=== PATIENT | female | born 1975 | race Caucasian/White ===

== ENCOUNTER → 2017-02-22 | Outpatient (CLI) | payer BC ==
--- NOTE | 2017-02-23 11:44 | ECHOF ---
Referral Reason:R00.2 Palpitations MEASUREMENTS -------- HEIGHT: 160.0 cm WEIGHT: 81.6 kg BP: 129/69 RVIDd: 2.7 cm (< 3.3) IVSd: 1.1 cm (0.6 - 1.1) LVIDd: 4.1 cm (3.9 - 5.3) LVPWd: 1.0 cm (0.6 - 1.1) IVSs: 1.4 cm LVIDs: 2.7 cm LVPWs: 1.3 cm LA Diam: 3.1 cm (2.7 - 3.8) LAESV Index (A-L): 23.53 ml/m Ao Diam: 3.0 cm (2.0 - 3.7) AV Cusp: 1.9 cm (1.5 - 2.6) MV EXCURSION: 17.007 mm (> 18.000) MV EF SLOPE: 106 mm/s (70 - 150) EPSS: 0.3 cm MV E Jc: 1.01 m/s MV DecT: 247 ms MV A Jc: 0.69 m/s MV E/A Ratio: 1.47 FINDINGS -------- Sinus rhythm. This was a technically good study. The left ventricular size is normal. Left ventricular wall thickness is normal. Overall left ventricular systolic function is normal with, an EF between 60 - 65 %. The right ventricle is normal in size and function. Normal LA size by volume 22+/-6 ml/m2. The right atrium is normal in size. The aortic valve is trileaflet and appears structurally normal. Normal appearing mitral valve. No mitral regurgitation. The tricuspid valve appears structurally normal. Trace/mild (physiologic) pulmonic regurgitation. The aortic root size is normal. Normal inferior vena cava with normal inspiratory collapse consistent with estimated right atrial pressure of 5 mmHg. There is no pericardial effusion. CONCLUSIONS -------- 1. Sinus rhythm. 2. Normal appearing mitral valve. 3. The tricuspid valve appears structurally normal. 4. Trace/mild (physiologic) pulmonic regurgitation. 5. The aortic root size is normal. 6. Normal inferior vena cava with normal inspiratory collapse consistent with estimated right atrial pressure of 5 mmHg. 7. There is no pericardial effusion. 8. This was a technically good study. 9. The left ventricular size is normal. 10. Left ventricular wall thickness is normal. 11. Overall left ventricular systolic function is normal with, an EF between 60 - 65 %. 12. The right ventricle is normal in size and function. 13. Normal LA size by volume 22+/-6 ml/m2. 14. The right atrium is normal in size. 15. The aortic valve is trileaflet and appears structurally normal. BEER BREWER: Emerita Back RDCS
== END | disposition home or self-care (01) ==
LOC: RADECHMAIN 11:19
PROVIDERS: ATTEND Family Medicine
DX: I37.1 Nonrheumatic pulmonary valve insufficiency (principal); R00.1 Bradycardia, unspecified; R00.0 Tachycardia, unspecified
CPT/HCPCS: 93225; 93226; 93306

== ENCOUNTER → 2019-05-15 | Outpatient (CLI) | payer BC ==
[2019-05-15 10:14] VITALS: BP 112/75; PULSE 59; RESP 16; TEMP 98.2; BMI 32.9
--- NOTE | 2019-05-15 11:03 | P.HPOB ---
History of Present Illness H&P Date: 05/15/19 Chief Complaint: The patient is here for her routine gynecologic exam and ma mmogram. This is a 43-year-old with an LMP of 2011. She is here to establish with this office. She is status post vaginal hysterectomy in 2011 for benign reasons. She is without gynecologic complaints. Her last pelvic exam was around 2011. Review of Systems She has gained 5 or 10 pounds over the past year. She denies respiratory or cardiac problems. G.I.: has bowel movements up to 2 or 3 times per day and are occasionally loose. She was once told she has irritable bowel syndrome. : she occasionally loses urine with running or walking. Past Medical History Past Medical History: Asthma, GERD/Reflux Additional Past Medical History / Comment(s): ENVIRONMENTAL ALLERGIES. 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 She had a vaginal hysterectomy for uterine fibroids. History of Any Multi-Drug Resistant Organisms: None Reported Past Surgical History: Cholecystectomy, Hysterectomy, Tonsillectomy Additional Past Surgical History / Comment(s): Vaginal hysterectomy 2011. Past Anesthesia/Blood Transfusion Reactions: No Reported Reaction Past Psychological History: No Psychological Hx Reported Smoking Status: Never smoker Past Alcohol Use History: Occasional (1-3 per week) Past Drug Use History: None Reported Additional History: She has been since 2013. 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 - Past Family History Mother Family Medical History: Hypertension Additional Family Medical History / Comment(s): Maternal grandmother and maternal aunt had congestive heart failure. Father Family Medical History: Cancer, Hypertension Additional Family Medical History / Comment(s): SKIN CANCER. Sister(s) Additional Family Medical History / Comment(s): Benign breast tumor. Medications and Allergies Home Medications Medication Instructions Recorded Confirmed Type Cholecalciferol (Vitamin D3) 2,000 unit PO 05/15/19 History [Vitamin D3] Allergies Allergy/AdvReac Type Severity Reaction Status Date / Time chocolate flavor Allergy Unknown Cough Verified 05/15/19 10:15 corn syrup Allergy Unknown Cough Verified 05/15/19 10:15 sulfamethoxazole AdvReac Unknown Unverified 05/15/19 10:15 [From Bactrim] trimethoprim [From Bactrim] AdvReac Unknown Unverified 05/15/19 10:15 Exam Vital Signs Temp Pulse Resp BP Pulse Ox 05/15/19 10:07 98.2 F 59 L 16 112/75 98 Intake and Output 05/14/19 05/15/19 05/15/19 22:59 06:59 14:59 Other: Weight 84.368 kg Height 5'3", weight 186 pounds, BMI 32.9. This is a well-developed well-nourished white female who is alert and oriented times 3 in no acute distress. HEENT: Within normal limits. NECK: Supple without mass or thyromegaly. CHEST AND LUNGS: Clear to auscultation. HEART: Regular rate and rhythm. BREASTS: Are without mass or discharge. AXILLARY EXAM: Negative for adenopathy. BACK: Negative for CVA tenderness. ABDOMEN: Soft, nontender, without palpable masses. PELVIC EXAM: External genitalia appears normal. Vagina appears normal. There is no evidence of prolapse. Bimanual examination is negative for mass or tenderness. There is a small amount of urethral mobility with cough and Valsa lva. No urinary leakage was demonstrated. RECTAL EXAM: Rectovaginal exam is negative for mass or tenderness and is negative for occult blood. EXTREMITIES: Nontender. IMPRESSION: 1. 43-year-old female with normal gynecologic exam who is status post vaginal hysterectomy for benign reasons. 2. Slight urinary incontinence with running and walking. Probable mixed incontinence. PLAN: 1. Pap smears have been discontinued. 2. Self breast awareness was discussed with the patient. 3. Screening mammogram will be done today. She states she did have one around 2005. 4. I recommended that she do [place] exercises and timed voids. She was also advised to urinate prior to running for exercise. 5. She was advised to return in one year for her annual well woman exam.
--- NOTE | 2019-05-15 13:16 | MM ---
Reason for exam: screening (asymptomatic). Baseline mammogram. Physical Findings: Dr. Caceres did breast exam. MG 3D Screening Mammo W/Cad Bilateral CC and MLO view(s) were taken. No prior studies available for comparison. Finding: There is a 10 mm equal density (isodense), oval mass in the lower inner quadrant, posterior position of the left breast. These results were verbally communicated with the patient and result sheet given to the patient on 05/15/19. ASSESSMENT: Incomplete: need additional imaging evaluation, BI-RAD 0 RECOMMENDATION: Ultrasound of the left breast.
--- NOTE | 2019-05-15 13:17 | USB ---
Reason for exam: additional evaluation requested from abnormal screening. Physical Findings: Breast exam preformed at baseline screening. US Breast Limited LT Left limited breast ultrasound including focal area of concern, retroareolar and axilla demonstrates a 0.9 x 1.0 x 0.5cm solid, hypoechoic lesion at 8 o'clock. These results were verbally communicated with the patient and result sheet given to the patient on 05/15/19. ASSESSMENT: Suspicious, BI-RAD 4 RECOMMENDATION: Ultrasound core biopsy of the left breast. Called Dr. Caceres with mammographic findings and has scheduled an appointment for the patient for 06/15/19 at 11:[address] Salazar. Biopsy scheduled for 06/18/19 at 12:20. PRELIMINARY REPORT CALLED AND FAXED TO DR. SALAZAR ON 05/15/19.
== END ==
LOC: WWCWWP 10:01
PROVIDERS: ATTEND Obstetrics & Gynecology
DX: Z12.31 Encounter for screening mammogram for malignant neoplasm of breast (principal); R92.8 Other abnormal and inconclusive findings on diagnostic imaging of breast
CPT/HCPCS: 77063; 77067

== ENCOUNTER → 2019-06-15 | Outpatient (CLI) | payer BC ==
[2019-06-15 11:48] VITALS: BP 129/80; PULSE 64; RESP 18; TEMP 98.6; BMI 30.9
--- NOTE | 2019-06-15 12:01 | P.GSHP ---
History of Present Illness H&P Date: 06/15/19 Chief Complaint: abnormal mammogram left breast Silvia is a 43 -year-old white female with the routine mammogram revealing a lesion in the left breast. An ultrasound was recommended which revealed a 0.9 cm solid lesion at 8:00. The patient does not feel anything of concern in her breast. She has no history of any prior left breast biopsies. She did have a history of left breast mastitis approximately 10 years ago. She has no complaints of any nipple discharge or pain in her breast. She had a hysterectomy for heavy bleeding and fibroids. She was 36. They did not take her ovaries. Family history: 1. sister with a desmoid tumor removed from her left breast 2. father: skin cancer not melanoma Hormonal history: Menarche:12 , breast fed: yes, age at first : 24 Hysterectomy at 36, they did not take her previous control pills:7 years hormones: none Surgical history: 1. Hysterectomy 2. Cholecystectomy 3. Tonsillectomy Medical history: none Social history: Smoke: Negative Alcohol: Social Drugs: Negative - Constitutional Constitutional: Reports sweats - EENT Eyes: denies blurred vision, denies pain Ears: deny: decreased hearing, tinnitus Ears, nose, mouth and throat: Denies headache, Denies sore throat - Breasts Breasts: bilateral: as per HPI - Cardiovascular Cardiovascular: Denies chest pain, Denies shortness of breath - Respiratory Comment: asthma - Gastrointestinal Comment: IBS - Genitourinary (Female) Genitourinary: Denies dysuria, Denies hematuria - Menstruation Menstruation: Reports post hysterectomy - Musculoskeletal Comment: scoliosis Musculoskeletal: Denies myalgias - Integumentary Integumentary: Denies pruritus, Denies rash - Neurological Neurological: Denies numbness, Denies weakness - Psychiatric Psychiatric: Denies anxiety, Denies depression - Endocrine Endocrine: Denies fatigue, Denies weight change - Hematologic/Lymphatic Comment: none - Allergic/Immunologic Allergic/Immunologic: Reports seasonal allergies Past Medical History Past Medical History: Asthma, GERD/Reflux Additional Past Medical History / Comment(s): ENVIRONMENTAL ALLERGIES. 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 She had a vaginal hysterectomy for uterine fibroids. History of Any Multi-Drug Resistant Organisms: None Reported Past Surgical History: Cholecystectomy, Hysterectomy, Tonsillectomy Additional Past Surgical History / Comment(s): Vaginal hysterectomy 2012. Past Anesthesia/Blood Transfusion Reactions: No Reported Reaction Past Psychological History: No Psychological Hx Reported Smoking Status: Never smoker Past Alcohol Use History: Occasional Past Drug Use History: None Reported - Past Family History Sister(s) Additional Family Medical History / Comment(s): Benign breast tumor. Mother Family Medical History: Hypertension Additional Family Medical History / Comment(s): Maternal grandmother and maternal aunt had congestive heart failure. Father Family Medical History: Cancer, Hypertension Additional Family Medical History / Comment(s): SKIN CANCER. Medications and Allergies Home Medications Medication Instructions Recorded Confirmed Type Cholecalciferol (Vitamin D3) 2,000 unit PO DAILY 05/15/19 06/04/19 History [Vitamin D3] Allergies Allergy/AdvReac Type Severity Reaction Status Date / Time chocolate flavor Allergy Unknown Cough Verified 05/15/19 10:15 corn syrup Allergy Unknown Cough Verified 05/15/19 10:15 sulfamethoxazole AdvReac Unknown Unverified 05/15/19 10:15 [From Bactrim] trimethoprim [From Bactrim] AdvReac Unknown Unverified 05/15/19 10:15 Surgical - Exam BMI 31 - General well developed, well nourished, no distress - Eyes normal ocular movement - ENT no hearing loss, no congestion - Neck no masses, trachea midline - Respiratory normal respiratory effort, clear to auscultation - Cardiovascular Rhythm: regular Heart Sounds: normal: S1, S2 - Abdomen Abdomen: soft, non tender, no guarding, no rigid, no rebound - Integumentary normal turgor - Neurologic no disoriented, no combative - Musculoskeletal normal gait, normal posture - Psychiatric oriented to time, oriented to person, oriented to place, speech is normal, memory intact Breast exam: Right breast: Multi-positional exam no dominant masses or nodules of concern, fibrocystic changes Right axilla: No adenopathy of concern Left breast: Multiple positional exam no dominant masses or nodules of concern, slight fullness in the upper inner aspect believed related to scoliosis and the breast being projected forward slightly Left axilla: No adenopathy of concern Results Mammogram and ultrasound results reviewed Assessment and Plan Assessment: Impression: 1. Abnormal left breast mammogram 2. Abnormal left breast ultrasound 3. Fibrocystic breast changes 4. Scoliosis 5. Family history of cancer 6. Irritable bowel syndrome Plan: 1. Left breast ultrasound-guided core biopsy 2. Follow-up after biopsy 3. Medical management of medical conditions Cc:
== END ==
LOC: WWCWWP 10:54
PROVIDERS: ATTEND Surgery
DX: Z53.9 Procedure and treatment not carried out, unspecified reason (principal)

== ENCOUNTER → 2019-06-18 | Day surgery (SDC) | payer BC ==
[2019-06-18 12:25] VITALS: RESP 18; BMI 30.9
[2019-06-18 13:44] VITALS: BP 112/67; PULSE 60; TEMP 98.6
--- NOTE | 2019-06-18 14:34 | USB ---
EXAMINATION TYPE: US biopsy breast VAD LT, MG diagnostic mammo LT wo CAD DATE OF EXAM: 06/18/2019 CLINICAL HISTORY: R92.8 ABN MAMMO. TECHNIQUE: Ultrasound guided core biopsy of left breast. COMPARISON: Left breast ultrasound dated 05/15/2019 FINDINGS: The procedure of ultrasound guided core biopsy was explained to the patient. Benefits, alternatives, and risks were discussed. An informed consent was then obtained. Preprocedural timeout was performed. The patient was placed in supine positioning for imaging and for the procedure. The overlying skin was prepped and draped in usual sterile fashion. 10 cc of 1% lidocaine without epinephrine was used as anesthetic into the skin and subcutaneous tissue up to a 0.9 x 1.0 x 0.5 cm appearing mass at the 8:00 position in the left breast. Under ultrasound guidance, a 12-gauge vacuum assisted biopsy gun device was used to obtain 4 core samples. After 3 samples the lesion collapsed confirming cystic nature. Following this, a ribbon-shaped biopsy marker was at the site of biopsy. The patient tolerated the procedure well without any immediate complication. The patient was kept in the radiology department for short stay after the procedure and then discharged home in stable condition. Postprocedure mammogram demonstrates appropriate biopsy marker placement. IMPRESSION: Successful, uncomplicated ultrasound guided core biopsy of a 0.9 x 1.0 x 2.5 cm mass at the 8:00 position in the left breast, full pathology results to follow. Of note the mass collapsed on the third biopsy confirming cystic nature of the mass. Pathology Results: Benign LEFT BREAST, 8:00, ULTRASOUND GUIDED CORE BIOPSY: Fibroadenoma. Recommendation Follow up ultrasound of the left breast in 6 months. SIXTO
== END | disposition home or self-care (01) ==
LOC: RADUSWWP 12:08
PROVIDERS: ATTEND Surgery
DX: D24.2 Benign neoplasm of left breast (principal)
CPT/HCPCS: 88305; 77065; 19083; A4648; J2001

== ENCOUNTER → 2019-06-21 | Outpatient (CLI) | payer BC ==
[2019-06-21 13:34] VITALS: BP 122/85; PULSE 64; RESP 16; TEMP 98.4; BMI 30.9
--- NOTE | 2019-06-21 13:38 | P.PN ---
Subjective Progress Note Date: 06/21/19 Silvia is a 43 -year-old white female with the routine mammogram revealing a lesion in the left breast. An ultrasound was recommended which revealed a 0.9 cm solid lesion at 8:00. The patient does not feel anything of concern in her breast. She has no history of any prior left breast biopsies. She did have a history of left breast mastitis approximately 10 years ago. She has no complaints of any nipple discharge or pain in her breast. She had a hysterectomy for heavy bleeding and fibroids. She was 36. They did not take her ovaries. She underwent an ultrasound-guided core biopsy on [id number]. Pathology reveals a fibroadenoma. The patient has no complaints related to the procedure postoperatively. Family history: 1. sister with a desmoid tumor removed from her left breast 2. father: skin cancer not melanoma Hormonal history: Menarche:12 , breast fed: yes, age at first : 24 Hysterectomy at 36, they did not take her previous control pills:7 years hormones: none Surgical history: 1. Hysterectomy 2. Cholecystectomy 3. Tonsillectomy Medical history: none Social history: Smoke: Negative Alcohol: Social Drugs: Negative - Constitutional Constitutional: Reports sweats - EENT Eyes: denies blurred vision, denies pain Ears: deny: decreased hearing, tinnitus Ears, nose, mouth and throat: Denies headache, Denies sore throat - Breasts Breasts: bilateral: as per HPI - Cardiovascular Cardiovascular: Denies chest pain, Denies shortness of breath - Respiratory Comment: asthma - Gastrointestinal Comment: IBS - Genitourinary (Female) Genitourinary: Denies dysuria, Denies hematuria - Menstruation Menstruation: Reports post hysterectomy - Musculoskeletal Comment: scoliosis Musculoskeletal: Denies myalgias - Integumentary Integumentary: Denies pruritus, Denies rash - Neurological Neurological: Denies numbness, Denies weakness - Psychiatric Psychiatric: Denies anxiety, Denies depression - Endocrine Endocrine: Denies fatigue, Denies weight change - Hematologic/Lymphatic Comment: none - Allergic/Immunologic Allergic/Immunologic: Reports seasonal allergies Objective - Vital Signs Vital signs: Vital Signs Temp 98.4 F 06/21/19 13:30 Pulse 64 06/21/19 13:30 Resp 16 06/21/19 13:30 BP 122/85 06/21/19 13:30 Pulse Ox 99 06/21/19 13:30 Intake & Output 06/20/19 06/21/19 06/21/19 18:59 06:59 18:59 Weight 79.379 kg - Exam Left breast: Biopsy site clean and dry no evidence of hematoma, no evidence of infection Assessment and Plan Assessment: Impression: 1. Fibroadenoma left breast 2. Family history of skin cancer and father 3. sister history of desmoid tumor in her breast 4. Fibrocystic breast changes 5. Mammographic abnormality left breast for which biopsy was performed Plan: 1. Left breast mammogram and ultrasound in 6 months 2. Patient to call if any questions or concerns sooner 3. Follow-up physician exam in 6 months CC: Dr. Mary
== END | disposition home or self-care (01) ==
LOC: WWCWWP 13:22
PROVIDERS: ATTEND Surgery
DX: Z53.9 Procedure and treatment not carried out, unspecified reason (principal)

== ENCOUNTER → 2019-11-27 | Outpatient (CLI) | payer BC ==
--- NOTE | 2019-11-27 15:10 | MM ---
Reason for exam: follow-up at short interval from prior study. Last mammogram was performed 5 months ago. History: Benign US biopsy breast VAD LT of the left breast, June 18, 2019. Physical Findings: Nurse did not find any significant physical abnormalities on exam. MG 3D Diag Mammo W/Cad LT CC and MLO view(s) were taken of the left breast. Prior study comparison: June 18, 2019, left breast MG diagnostic mammo LT wo CAD. May 15, 2019, bilateral MG 3d screening mammo w/cad. The breast tissue is heterogeneously dense. This may lower the sensitivity of mammography. There is a stable left lower inner quadrant mass with ribbon biopsy marker corresponding to the biopsy proven fibroadenoma. Left retroareolar architectural distortion resolves on additional spot compression views. These results were verbally communicated with the patient and result sheet given to the patient on 11/27/19. ASSESSMENT: Benign, BI-RAD 2 RECOMMENDATION: Return to routine screening mammogram schedule for both breasts. Back on schedule for May 2020.
== END | disposition home or self-care (01) ==
LOC: RADMAMWWP 13:44
PROVIDERS: ATTEND Surgery
DX: R92.8 Other abnormal and inconclusive findings on diagnostic imaging of breast (principal)
CPT/HCPCS: 77061; 77065

== ENCOUNTER → 2020-04-30 | Outpatient (CLI) | payer BC ==
--- NOTE | 2020-04-30 13:33 | US ---
EXAMINATION TYPE: US thyroid st tissue head/neck DATE OF EXAM: 04/30/2020 COMPARISON: Prior thyroid ultrasound February 17, 2015 CLINICAL HISTORY: E04.1 NONTOXIC SINGLE THYROID NODULE. GLAND SIZE: Right Lobe: 4.1 x 1.9 x 1.7 cm Overall Parenchyma: homogenous Left Lobe: 4.2 x 1.5 x 1.4 cm Overall Parenchyma: homogeneous Isthmus Thickness: 0.3 cm NODULES RIGHT: # of nodules measured on right: 1 1. 0.6 X 0.3 x 0.6 cm hypoechoic solid nodule at the mid pole with well-defined margins. This nodu le is wider than tall and shows intranodular vascularity. Prior size: 0.6 x 0.3 x 0.4 cm LEFT: # of nodules measured on left: 0 ISTHMUS: # of nodules measured in the isthmus: 0 Bilateral neck scanned, no evidence of lymphadenopathy. Homogeneous somewhat small size thyroid with stable subcentimeter spongiform nodule. IMPRESSION: As above. No new or enlarging greater than 1 cm nodules.
== END | disposition home or self-care (01) ==
LOC: RADUSWWP 12:12
PROVIDERS: ATTEND Family Medicine
DX: E04.1 Nontoxic single thyroid nodule (principal)
CPT/HCPCS: 76536

== ENCOUNTER → 2020-12-30 | Outpatient (CLI) | payer BC ==
[2020-12-30 09:43] VITALS: BP 115/68; PULSE 62; RESP 16; TEMP 98.3
--- NOTE | 2020-12-30 10:31 | P.HPOB ---
History of Present Illness H&P Date: 12/30/20 Chief Complaint: The patient is here for her routine gynecologic exam and ma mmogram. This is a 45-year-old with an LMP of 2011. The patient is status post vaginal hysterectomy in 2011 for benign reasons. The patient is without gynecologic complaints and denies any significant hot flashes. Review of Systems The patient has lost 11 pounds over the last year. She denies respiratory, cardiac, or G.I. problems. Past Medical History Past Medical History: Asthma, GERD/Reflux Additional Past Medical History / Comment(s): ENVIRONMENTAL ALLERGIES. Carpal tunnel syndrome. 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 She had a vaginal hysterectomy for uterine fibroids. History of Any Multi-Drug Resistant Organisms: None Reported Past Surgical History: Cholecystectomy, Hysterectomy, Tonsillectomy Additional Past Surgical History / Comment(s): Vaginal hysterectomy 2011. Past Anesthesia/Blood Transfusion Reactions: No Reported Reaction Past Psychological History: No Psychological Hx Reported Smoking Status: Never smoker Past Alcohol Use History: Occasional (1-2 per month) Additional Past Alcohol Use History / Comment(s): Never smoker Past Drug Use History: None Reported Additional History: She has been since 2013. 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 - Past Family History Sister(s) Additional Family Medical History / Comment(s): Benign breast tumor. Mother Family Medical History: Hypertension Additional Family Medical History / Comment(s): Maternal grandmother and maternal aunt had congestive heart failure. Father Family Medical History: Cancer, Hypertension Additional Family Medical History / Comment(s): SKIN CANCER. Medications and Allergies Home Medications Medication Instructions Recorded Confirmed Type Cholecalciferol (Vitamin D3) 2,000 unit PO DAILY 05/15/19 12/30/20 History [Vitamin D3] Hyoscyamine Sulfate [Levsin] 0.125 mg PO DAILY PRN 06/15/19 12/30/20 History Allergies Allergy/AdvReac Type Severity Reaction Status Date / Time chocolate flavor Allergy Unknown Cough Verified 12/30/20 09:40 corn syrup Allergy Unknown Cough Verified 12/30/20 09:40 sulfamethoxazole AdvReac Unknown Unverified 12/30/20 09:40 [From Bactrim] trimethoprim [From Bactrim] AdvReac Unknown Unverified 12/30/20 09:40 Exam Vital Signs Temp Pulse Resp BP Pulse Ox 12/30/20 09:40 98.3 F 62 16 115/68 98 Intake and Output 12/29/20 12/30/20 12/30/20 22:59 06:59 14:59 Other: Weight 79.379 kg Height 5 feet 3 inches, weight 175 pounds, BMI 31.0. This is a well-developed well-nourished white female who is alert and oriented times 3 in no acute distress. HEENT: Within normal limits. NECK: Supple without mass or thyromegaly. CHEST AND LUNGS: Clear to auscultation. HEART: Regular rate and rhythm. BREASTS: Are without mass or discharge. There is minimal bilateral breast tenderness. AXILLARY EXAM: Negative for adenopathy. BACK: Negative for CVA tenderness. ABDOMEN: Soft, nontender, without palpable masses. PELVIC EXAM: External genitalia appears normal. Vagina appears normal. There is no evidence of prolapse. Bimanual examination is negative for mass or tenderness. RECTAL EXAM: Rectal exam is negative for mass or tenderness and is negative for occult blood. EXTREMITIES: Nontender. IMPRESSION: 1. 45-year-old perimenopausal female status post vaginal hysterectomy for benign reasons with normal gynecologic exam. PLAN: 1. Pap smears have been discontinued. 2. Self breast awareness was discussed with the patient. 3. Osteoporosis prevention was discussed. I have stressed the importance of adequate calcium, vitamin D and regular exercise. Recommended amounts of calcium and vitamin D were also discussed. 4. Screening mammogram will be done today. 5. She was advised to return in one year for her annual well woman exam.
--- NOTE | 2020-12-31 09:59 | MM ---
Reason for exam: screening (asymptomatic). Last mammogram was performed 1 year and 1 month ago. History: Benign US biopsy breast VAD LT of the left breast, June 18, 2019. Physical Findings: A clinical breast exam by your physician is recommended on an annual basis and results should be correlated with mammographic findings. MG 3D Screening Mammo W/Cad Bilateral CC and MLO view(s) were taken. Prior study comparison: November 27, 2019, left breast MG 3d diag mammo w/cad LT. June 18, 2019, left breast MG diagnostic mammo LT wo CAD. The breast tissue is heterogeneously dense. This may lower the sensitivity of mammography. There is no discrete abnormality. No significant changes when compared with prior studies. ASSESSMENT: Negative, BI-RAD 1 RECOMMENDATION: Routine screening mammogram of both breasts in 1 year.
== END | disposition home or self-care (01) ==
LOC: WWCWWP 09:28
PROVIDERS: ATTEND Obstetrics & Gynecology
DX: Z12.31 Encounter for screening mammogram for malignant neoplasm of breast (principal)
CPT/HCPCS: 77063; 77067

== ENCOUNTER → 2022-02-02 | Outpatient (CLI) | payer BC ==
[2022-02-02 11:57] VITALS: BP 137/78; PULSE 56; RESP 17; TEMP 98.3
--- NOTE | 2022-02-02 12:38 | P.HPOB ---
History of Present Illness H&P Date: 02/02/22 Chief Complaint: The patient is here for her routine gynecologic exam and ma mmogram. This is a 46-year-old with an LMP of 2011. She is status post vaginal hysterectomy for benign reasons. She has been experiencing increased nipple sensitivity. She denies any nipple discharge. She does experience some monthly changes that are similar to when she was having menstrual periods. She is otherwise without gynecologic complaints. Review of Systems She is lost about 38 pounds intentionally over the past year. She has done this with dietary changes through a program called [employer]. She denies respiratory, cardiac, or GI problems. Past Medical History Past Medical History: Asthma, GERD/Reflux Additional Past Medical History / Comment(s): ENVIRONMENTAL ALLERGIES. Carpal tunnel syndrome. 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 She had a vaginal hysterectomy for uterine fibroids. History of Any Multi-Drug Resistant Organisms: None Reported Past Surgical History: Cholecystectomy, Hysterectomy, Tonsillectomy Additional Past Surgical History / Comment(s): Vaginal hysterectomy 2011. Colonoscopy with upper endoscopy in 2015. Past Anesthesia/Blood Transfusion Reactions: No Reported Reaction Past Psychological History: No Psychological Hx Reported Smoking Status: Never smoker Past Alcohol Use History: Occasional (1-3 per month) Additional Past Alcohol Use History / Comment(s): Never smoker Past Drug Use History: None Reported Additional History: She has been since 2013. 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 - Past Family History Sister(s) Additional Family Medical History / Comment(s): Benign breast tumor. Mother Family Medical History: Hypertension Additional Family Medical History / Comment(s): Maternal grandmother and maternal aunt had congestive heart failure. Father Family Medical History: Cancer, Hypertension Additional Family Medical History / Comment(s): SKIN CANCER. Medications and Allergies Home Medications Medication Instructions Recorded Confirmed Type Cholecalciferol (Vitamin D3) 2,000 unit PO DAILY 05/15/19 02/02/22 History [Vitamin D3] Hyoscyamine Sulfate [Levsin] 0.125 mg PO DAILY PRN 06/15/19 02/02/22 History Allergies Allergy/AdvReac Type Severity Reaction Status Date / Time chocolate flavor Allergy Unknown Cough Verified 02/02/22 11:51 corn syrup Allergy Unknown Cough Verified 02/02/22 11:51 sulfamethoxazole AdvReac Unknown Unverified 02/02/22 11:51 [From Bactrim] trimethoprim [From Bactrim] AdvReac Unknown Unverified 02/02/22 11:51 Exam Vital Signs Temp Pulse Resp BP Pulse Ox 02/02/22 11:53 98.3 F 56 L 17 137/78 100 Intake and Output 02/01/22 02/02/22 02/02/22 22:59 06:59 14:59 Other: Weight 62.142 kg Height 5 feet 3 inches, weight 137 pounds, BMI 24.3. This is a well-developed well-nourished white female who is alert and oriented times 3 in no acute distress. HEENT: Within normal limits. NECK: Supple without mass or thyromegaly. CHEST AND LUNGS: Clear to auscultation. HEART: Regular rate and rhythm. BREASTS: Are without mass or discharge. There is moderate fibrous tissue throughout both breasts consistent with her recent weight loss. No dominant mass. There is minimal breast tenderness. The nipples appear normal without discharge. AXILLARY EXAM: Negative for adenopathy. BACK: Negative for CVA tenderness. ABDOMEN: Soft, nontender, without palpable masses. PELVIC EXAM: External genitalia appears normal. Vagina appears normal. There is no evidence of prolapse. Bimanual examination is negative for mass or tenderness. RECTAL EXAM: Rectal exam is negative for mass or tenderness and is negative for occult blood. EXTREMITIES: Nontender. IMPRESSION: 1. 46-year-old pre-menoapusal female who is status post vaginal hysterectomy for benign reasons, with normal gynecologic exam. 2. Recent intentional weight loss with dietary changes. 3. Breast and nipple sensitivity with no significant physical findings. PLAN: 1. Pap smears have been discontinued. 2. Self breast awareness was discussed with the patient. We have also discussed symptoms associated with inflammatory breast cancer. 3. Screening mammogram was done today. 4. Her resting nipple sensitivity probably is related to her ovarian hormones. I believe she is still not postmenopausal. I recommended that she try decreasing caffeine intake. She states she typically only drinks 1 or 2 cups of coffee per day. The nipple sensitivity may or may not be related to her weight loss. 5. Osteoporosis prevention was discussed. I have stressed the importance of ad equate calcium, vitamin D and regular exercise. Recommended amounts of calcium and vitamin D were also discussed. 6. She was advised to return in one year for her annual well woman exam.
--- NOTE | 2022-02-04 14:22 | MM ---
Reason for exam: screening (asymptomatic). Last mammogram was performed 1 year and 1 month ago. History: Benign US biopsy breast VAD LT of the left breast, June 18, 2019. Physical Findings: A clinical breast exam by your physician is recommended on an annual basis and results should be correlated with mammographic findings. MG 3D Screening Mammo W/Cad Bilateral CC and MLO view(s) were taken. Prior study comparison: December 30, 2020, bilateral MG 3d screening mammo w/cad. November 27, 2019, left breast MG 3d diag mammo w/cad LT. The breast tissue is extremely dense which could obscure a lesion on mammography. No significant changes when compared with prior studies. ASSESSMENT: Benign, BI-RAD 2 RECOMMENDATION: Routine screening mammogram of both breasts in 1 year.
== END | disposition home or self-care (01) ==
LOC: WWCWWP 11:21
PROVIDERS: ATTEND Obstetrics & Gynecology
DX: Z12.31 Encounter for screening mammogram for malignant neoplasm of breast (principal)
CPT/HCPCS: 77063; 77067

== ENCOUNTER → 2023-06-14 | Outpatient (CLI) | payer BC ==
[2023-06-14 13:06] VITALS: BP 118/76; PULSE 60; RESP 17; TEMP 98.3
--- NOTE | 2023-06-14 13:26 | P.HPOB ---
History of Present Illness H&P Date: 06/14/23 Chief Complaint: The patient is here for her routine gynecologic exam and ma mmogram. This is a 47-year-old with an LMP of 2011. She is status post vaginal hysterectomy for benign reasons. She is without gynecologic complaints and denies significant hot flashes. Review of Systems The patient has gained 13 pounds over the last year. This was after losing 35 pounds the previous year. She has been exercising regularly. She denies respir atory, cardiac, or G.I. problems. Past Medical History Past Medical History: Asthma, GERD/Reflux Additional Past Medical History / Comment(s): ENVIRONMENTAL ALLERGIES. Carpal tunnel syndrome. 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 She had a vaginal hysterectomy for uterine fibroids. History of Any Multi-Drug Resistant Organisms: None Reported Past Surgical History: Breast Surgery, Cholecystectomy, Hysterectomy, Tonsillectomy Additional Past Surgical History / Comment(s): Vaginal hysterectomy 2011. Colonoscopy with upper endoscopy in 2015. Bilateral silicone breast implants and mini abdominoplasty 2021. Past Anesthesia/Blood Transfusion Reactions: No Reported Reaction Past Psychological History: No Psychological Hx Reported Smoking Status: Never smoker Past Alcohol Use History: Occasional (5 per month.) Additional Past Alcohol Use History / Comment(s): Never smoker Past Drug Use History: None Reported Additional History: She has been since 2013. 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 - Past Family History Sister(s) Additional Family Medical History / Comment(s): Benign breast tumor. Mother Family Medical History: Hypertension Additional Family Medical History / Comment(s): Maternal grandmother and maternal aunt had congestive heart failure. Father Family Medical History: Cancer, Hypertension Additional Family Medical History / Comment(s): SKIN CANCER. Medications and Allergies Home Medications Medication Instructions Recorded Confirmed Type Cholecalciferol (Vitamin D3) 2,000 unit PO DAILY 05/15/19 06/14/23 History [Vitamin D3] Magnesium 200 mg PO DAILY 06/14/23 06/14/23 History Montelukast [Singulair] 10 mg PO DAILY 06/14/23 06/14/23 History Allergies Allergy/AdvReac Type Severity Reaction Status Date / Time chocolate flavor Allergy Unknown Cough Verified 06/14/23 12:55 corn syrup Allergy Unknown Cough Verified 06/14/23 12:55 sulfamethoxazole AdvReac Unknown Unverified 06/14/23 12:55 [From Bactrim] trimethoprim [From Bactrim] AdvReac Unknown Unverified 06/14/23 12:55 Exam Vital Signs Temp Pulse Resp BP Pulse Ox 06/14/23 13:04 98.3 F 60 17 118/76 98 Intake and Output 06/13/23 06/14/23 06/14/23 22:59 06:59 14:59 Other: Weight 68.039 kg Height 5 feet 3 inches, weight 150 pounds, BMI 26.6. This is a well-developed well-nourished white female who is alert and oriented times 3 in no acute distress. HEENT: Within normal limits. NECK: Supple without mass or thyromegaly. CHEST AND LUNGS: Clear to auscultation. HEART: Regular rate and rhythm. BREASTS: Are without mass or discharge. Breasts are consistent with bilateral implants. AXILLARY EXAM: Negative for adenopathy. BACK: Negative for CVA tenderness. ABDOMEN: Soft, nontender, without palpable masses. PELVIC EXAM: External genitalia appears normal. Vagina appears normal. There is no evidence of prolapse. Bimanual examination is negative for mass or tenderness . RECTAL EXAM: negative for mass or tenderness and is negative for occult blood. EXTREMITIES: Nontender. IMPRESSION: 1. 47-year-old female status post vaginal hysterectomy with normal gynecologic exam. 2. Bilateral breast implants. PLAN: 1. Pap smears have been discontinued. 2. Self breast awareness was discussed with the patient. We have also discussed symptoms associated with inflammatory breast cancer. 3. Screening mammogram will be done today. 4. Osteoporosis prevention was discussed. I have stressed the importance of adequate calcium, vitamin D and regular exercise. Recommended amounts of calcium and vitamin D were also discussed. 5. She was advised to return in one year for her annual well woman exam.
--- NOTE | 2023-06-15 07:33 | MM ---
Reason for Exam: Screening (asymptomatic). Last mammogram was performed 1 year(s) and 5 month(s) ago. Patient History: Menarche at age 12. First Full-Term at age 24. Hysterectomy at age 36. 09/14/2022, Bilateral Reduction. 06/18/2019, Benign Core Biopsy on the left side. 09/14/2022, Bilateral Implants. Risk Values: Enid 5 year model risk: 1.2%. NCI Lifetime model risk: 11.1%. Prior Study Comparison: 11/27/2019 Left Diagnostic Mammogram, [facility]. 12/30/2020 Bilateral Screening Mammogram, [facility]. 02/02/2022 Bilateral Screening Mammogram, [facility]. Tissue Density: The breast tissue is extremely dense which could obscure a lesion on mammography. Findings: Analyzed By CAD. There is no suspicious group of microcalcifications or new suspicious mass in either breast. Bilateral breast implants appear intact. Biopsy clip within the left breast. Overall Assessment: Benign, BI-RAD 2 Management: Screening Mammogram of both breasts in 1 year. A clinical breast exam by your physician is recommended on an annual basis and results should be correlated with mammographic findings. Note on Enid scores and lifetime risk: 1. A Enid score greater than 3% is considered moderate risk. If this is the case, consider specialist referral to assess eligibility for a risk reducing agent. If overall lifetime risk for the development of breast cancer is 20% or higher, the patient may qualify for future screening with alternating mammogram and breast MRI. Electronically signed and approved by: Abdullahi Vazquez D.O.
== END ==
LOC: WWCWWP 12:40
PROVIDERS: ATTEND Obstetrics & Gynecology
DX: Z01.419 Encounter for gynecological examination (general) (routine) without abnormal findings (principal); J45.909 Unspecified asthma, uncomplicated; K21.9 Gastro-esophageal reflux disease without esophagitis; Z80.3 Family history of malignant neoplasm of breast; Z98.890 Other specified postprocedural states; Z98.82 Breast implant status; Z88.1 Allergy status to other antibiotic agents; Z88.2 Allergy status to sulfonamides; Z91.018 Allergy to other foods
CPT/HCPCS: 77063; 77067

== ENCOUNTER → 2024-02-16 | Outpatient (CLI) | payer BC ==
--- NOTE | 2024-02-17 06:13 | CT ---
EXAMINATION TYPE: CT sinus wo con DATE OF EXAM: 02/16/2024 COMPARISON: None HISTORY: sinusitis CT DLP: 416.3 mGycm. Automated Exposure Control for Dose Reduction was Utilized. TECHNIQUE: CT scan of the sinuses is performed without contrast, axial images are obtained, coronal r eformatted images are also reviewed. FINDINGS: The nasal septum curves minimally to the left. There are no osteophytic spurs. No nasal polyps and no ty bullosa. The right frontal sinus is clear; the right frontal recess is patent. The left frontal sinus is clear ; the left frontal recess are clear. The right maxillary sinus is clear; the infundibulum is patent. The right anterior and middle ethmoid sinus air cells are clear, and the right hiatus semilunaris is patent. The left maxillary sinus is clear and the infundibulum is patent The left anterior and middle ethmoid sinus air cells are clear, and the left hiatus semilunaris is patent. The sphenoid sinus and posterior ethmoid sinus air cells are clear, and the sphenoethmoidal recesses are patent bilaterally. The visualized mastoid sinus air cells and middle ear cavities are bilaterally clear. The osseous structures are negative. The visualized intracranial contents and extracranial soft tissues are unremarkable. IMPRESSION: Negative examination.
== END | disposition home or self-care (01) ==
LOC: RADCTMAIN 17:34
PROVIDERS: ATTEND Otolaryngology
DX: J32.0 Chronic maxillary sinusitis (principal); L02.416 Cutaneous abscess of left lower limb
CPT/HCPCS: 70486

== ENCOUNTER → 2024-05-14 | Outpatient (CLI) | payer BC ==
--- NOTE | 2024-05-14 15:29 | US ---
EXAMINATION TYPE: US thyroid st tissue head/neck DATE OF EXAM: 05/14/2024 COMPARISON: 04/30/20 CLINICAL INDICATION: Female, 48 years old with history of E04.1 NONTOXIC SINGLE THYROID NODULE; hx of thyroid nodule. Not on blood thinners GLAND SIZE: Right Lobe: 3.9 x 1.4 x 1.5 cm Overall Parenchyma: homogeneous Left Lobe: 3.7 x 1.5 x 1.5 cm Overall Parenchyma: homogeneous Isthmus Thickness: 0.3 cm NODULES RIGHT: # of nodules measured on right: 1 1. 0.7 X 0.6 x 0.4 cm, mid mid, Prior size: 0.6 x 0.6x 0.3 cm TIRADS Score: 3 TIRADS Category 3: Composition: Mixed cystic and solid (1 point). Echogenicity: Hypoechoic (2 points). Shape: Wider than tall (0 points). Margin: Smooth (0 points). Echogenic foci: None or large comet-tail artifacts (0 points) Recommendation: If >2.5cm: FNA; If >1.5cm: Follow up at 1,3,5 years LEFT: # of nodules measured on left: 0 ISTHMUS: # of nodules measured in the isthmus: 0 Bilateral neck scanned, no evidence of lymphadenopathy. IMPRESSION: Right thyroid nodule that meet criteria for follow-up.
== END | disposition home or self-care (01) ==
LOC: RADUSWWP 14:44
PROVIDERS: ATTEND Family Medicine
DX: E04.1 Nontoxic single thyroid nodule (principal)
CPT/HCPCS: 76536

== ENCOUNTER → 2024-07-03 | Outpatient (CLI) | payer BC ==
--- NOTE | 2024-07-06 15:56 | WWHP ---
This is from her 07/03/24 visit. [facility] - HISTORY AND PHYSICAL CHIEF COMPLAINT: The patient is here for her routine gynecologic exam and mammogram. HPI: This is a 48-year-old female who is status post vaginal hysterectomy for benign reasons. The patient denies significant hot flashes and states she feels more cold than hot. She has noticed some vaginal dryness and a lower sex drive. She is otherwise without gynecologic complaints. PAST MEDICAL HISTORY: Seasonal allergies and allergy induced asthma. Also refer to her previous gynecologic H and P from 2022. MEDICATIONS: Include: 1. Daisha. 2. Singulair. 3. Astelin nasal spray. 4. Vitamin D. 5. A magnesium supplement. PAST SURGICAL HISTORY: Revision of abdominoplasty and liposuction. Also refer to her previous 2022 gynecologic H and P. SOCIAL HISTORY: She denies tobacco and drug use and admits to about 3 alcohol-containing drinks per month. 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 FAMILY HISTORY: Sister has atrial fibrillation. Also refer to her 2022 history and physical. REVIEW OF SYSTEMS: She has gained about 5 pounds over the past year. She denies respiratory, cardiac or GI problems. PHYSICAL EXAMINATION: VITAL SIGNS: Blood pressure 106/77, height 5 feet 3 inches, weight 148 pounds, BMI 26, temperature 98.1, pulse 62, pulse oximeter 98%. GENERAL: This is a well-developed, well-nourished, white female, who is alert and oriented x3, in no acute distress. HEENT: Within normal limits. NECK: Supple without mass or thyromegaly. CHEST AND LUNGS: Clear to auscultation. HEART: Regular rate and rhythm. BREASTS: Consistent with bilateral breast implants. The breasts are without mass or discharge. Axillary exam is negative for adenopathy. ABDOMEN: Soft, nontender, without palpable masses. PELVIC: Normal external genitalia without significant atrophy. Vagina appears normal without significant atrophy. There is no evidence of prolapse. Bimanual examination is negative for mass or tenderness. Rectovaginal exam is negative for mass or tenderness and is Hemoccult negative. EXTREMITIES: Nontender. IMPRESSION: A 48-year-old perimenopausal female status post vaginal hysterectomy for benign reasons, with normal gynecologic exam. PLAN: 1. Pap smears have been discontinued. 2. Self-breast examination was discussed. We have reviewed the signs and symptoms of inflammatory breast cancer. 3. Screening mammogram will be done today. 4. Osteoporosis prevention was discussed. 5. Colorectal cancer screening was discussed. She has had a colonoscopy in approximately 2016. She will discuss further colorectal cancer screening with her PCP. 6. She will return in 1 year for her annual well-woman examination. MMODL / IJN: [id number] / SIXTO
--- NOTE | 2024-07-23 09:57 | MM ---
Reason for Exam: Screening (asymptomatic). Last screening mammogram was performed 12 month(s) ago. Patient History: Menarche at age 12. First Full-Term at age 24. Hysterectomy at age 36. 09/14/2022, Bilateral Reduction. 06/18/2019, Benign Core Biopsy on the left side. 09/14/2022, Bilateral Implants. Risk Values: En[place] 5 year model risk: 1.2%. NCI Lifetime model risk: 10.9%. Prior Study Comparison: 12/30/2020 Bilateral Screening Mammogram, [facility]. 02/02/2022 Bilateral Screening Mammogram, [facility]. 06/14/2023 Bilateral MG 3D screen mammo imp/cad., [facility]. Tissue Density: The breasts are extremely dense, which lowers the sensitivity of mammography. Findings: Analyzed By CAD. There is no suspicious group of microcalcifications or new suspicious mass in either breast. Bilateral breast implants are intact. Overall Assessment: Benign, BI-RAD 2 Management: Screening Mammogram of both breasts in 1 year. . Patient should continue monthly self-breast exams. A clinical breast exam by your physician is recommended on an annual basis. This exam should not preclude additional follow-up of suspicious palpable abnormalities. Note on Enid scores and lifetime risk: 1. A Enid score greater than 3% is considered moderate risk. If this is the case, consider specialist referral to assess eligibility for a risk reducing agent. 2. If overall lifetime risk for the development of breast cancer is 20% or higher, the patient may qualify for future screening with alternating mammogram and breast MRI. Electronically signed and approved by: Farrukh Cook M.D. Radiologis
== END | disposition home or self-care (01) ==
LOC: RADMAMWWP 15:43
PROVIDERS: ATTEND Obstetrics & Gynecology
DX: Z12.31 Encounter for screening mammogram for malignant neoplasm of breast (principal); Z01.419 Encounter for gynecological examination (general) (routine) without abnormal findings; R92.30 Dense breasts, unspecified; Z90.710 Acquired absence of both cervix and uterus
CPT/HCPCS: 77063; 77067

== ENCOUNTER → 2024-10-03 | Outpatient (CLI) | payer BC ==
[2024-10-03 12:45] VITALS: BP 129/88; PULSE 65; RESP 16; TEMP 98.5
--- NOTE | 2024-10-03 13:24 | USB ---
Reason for Exam: Clinical finding. Patient History: Menarche at age 12. First Full-Term at age 24. Hysterectomy at age 36. 09/14/2022, Bilateral Reduction. 06/18/2019, Benign Core Biopsy on the left side. 09/14/2022, Bilateral Implants. Risk Values: En[place] 5 year model risk: 1.2%. NCI Lifetime model risk: 10.9%. Technique: Method: Targeted. Prior Study Comparison: 02/02/2022 Bilateral Screening Mammogram, [facility]. 06/14/2023 Bilateral MG 3D screen mammo imp/cad., [facility]. 07/03/2024 Bilateral MG 3D screen mammo imp/cad., [facility]. Findings: The area of palpable concern of the left breast, the axilla of the left breast and the retroareolar of the left breast were scanned. Solid indeterminate mass at the site of clinical concern which corresponds to the left breast 2:00 position 10 cm from the nipple. Tissue diagnosis is recommended. No additional masses present within the [id number].. Overall Assessment: Suspicious, BI-RAD 4 Management: Ultrasound Core Biopsy of the left breast. A clinical breast exam by your physician is recommended on an annual basis and results should be correlated with mammographic findings. This exam should not preclude additional follow-up of suspicious palpable abnormalities. Results were given to the patient verbally at the time of exam. [facility], , 10/03/2024 1:21 PM. Electronically signed and approved by: Farrukh Cook M.D. Radiologis
--- NOTE | 2024-10-03 13:27 | P.PN ---
Progress Note - Text Progress Note Date: 10/03/24 Chief Complaint: Left lateral breast pain and possible lump for 1 month. HPI: This is a 48-year-old female who states she has noticed a left breast soreness during the past month. She believes this started when she was training for half marathon race. She notices this where the left breast meets the chest wall and axillary region. She thinks she also feels a small lump that feels like the tip of her finger. The small lump feels sore to the touch. She denies any nipple discharge. She is also wondering if she is menopausal. She is status post vaginal hysterectomy for benign reasons and has not had significant hot flashes, but has noticed a significant decrease in her sex drive. The breast soreness does not seem to be cyclic in nature. After her half marathon race, she has stopped running, but still notices the soreness. ROS: Unremarkable. PE: Blood pressure: 129/88, Height: 5 feet 3 inches, Weight: 150 pounds, Temperature: 98.5, Pulse: 65. Pulse oximeter 100%. This is a well developed, well nourished, white female who is alert and orientedx3, in no acute distress. Breasts are consistent with bilateral implants. There is no unusual dimpling or puckering of the breasts. The nipples appear normal without discharge. The area of soreness is at the lateral border of the left breast where it meets the rib cage. The ribs are palpable just posterior and lateral to the sore area. She points out an area that feels like a 1 x 1.5 cm tissue mass that is above the ribs in the lateral breast tissue. This is mildly tender. Screening mammogram on 07/03/2024 was benign. Impression: 1. 48-year-old female status post vaginal hysterectomy for benign reasons, with uncertain menopausal status. 2. Left breast soreness and small lump. Differential diagnosis will include pulled intercostal muscle, tendinitis involving a muscle near the rib cage, breast cyst, tender suspending the ligaments of the breast, and less likely, breast neoplasm. Plan: 1. Left breast ultrasound targeting the left lateral area of the breast where she is experiencing the soreness and where the small tissue lump is noted. If suspicious findings, consider tissue biopsy. If benign appearing, I have recommended that she use a fairly tight supportive bra, especially with running. I have also asked her to try to not push on the area for 1 month since constantly feeling and examining the area may keep it sore. She can also use ibuprofen as directed for soreness. 2. We will plan on doing FSH and estradiol blood testing to determine the menopausal status. If this show she is still premenopausal, cyclic breast soreness would also be part of the differential diagnosis. Time spent with the patient: 20 minutes
[2024-10-03 18:38] LABS: Estradiol 61.7 pg/mL
[2024-10-03 19:20] LABS: Follicle Stimulating Hormone 6.2 mIU/mL
== END ==
LOC: WWCWWP 11:53
PROVIDERS: ATTEND Obstetrics & Gynecology
DX: R92.8 Other abnormal and inconclusive findings on diagnostic imaging of breast (principal); N63.20 Unspecified lump in the left breast, unspecified quadrant; N95.1 Menopausal and female climacteric states; N91.2 Amenorrhea, unspecified; N64.4 Mastodynia; Z90.710 Acquired absence of both cervix and uterus; Z88.2 Allergy status to sulfonamides; Z88.1 Allergy status to other antibiotic agents; Z91.018 Allergy to other foods
CPT/HCPCS: 82670; 83001

== ENCOUNTER → 2024-10-03 | Outpatient (CLI) | payer BC ==
--- NOTE | 2024-10-09 17:20 | P.PN ---
Progress Note - Text Progress Note Date: 10/09/24 OUTPATIENT FOLLOW-UP NOTE TEST(S)/RESULTS: Test results from 10/03/2024 showed FSH of 6.2 and estradiol of 61.7. This is consistent with premenopausal state. Left breast ultrasound was suspicious. METHOD OF NOTIFICATION: Patient was notified by phone on 10/09/2024. PATIENT COMMENTS: The patient was aware of the suspicious left breast ultrasound and is scheduled for a biopsy on 10/19/2024. She will be seeing Dr. Ravi Snyder for follow-up DIAGNOSIS: Blood tests consistent with premenopausal state. Suspicious left breast ultrasound corresponding to the palpable lump in her breast. DISCUSSION: PLAN: Left breast biopsy as above.
== END | disposition home or self-care (01) ==
LOC: RADUSWWP 13:00
PROVIDERS: ATTEND Obstetrics & Gynecology
DX: Z53.9 Procedure and treatment not carried out, unspecified reason (principal)

== ENCOUNTER → 2024-10-19 | Day surgery (SDC) | payer BC ==
--- NOTE | 2024-10-31 08:45 | MM ---
Reason for Exam: Post Procedure Mammogram. Last screening mammogram was performed 4 month(s) ago. Patient History: Menarche at age 12. First Full-Term at age 24. Hysterectomy at age 36. 09/14/2022, Bilateral Reduction. 06/18/2019, Benign Core Biopsy on the left side. 09/14/2022, Bilateral Implants. Risk Values: [place] 5 year model risk: 1.2%. NCI Lifetime model risk: 10.9%. Prior Study Comparison: 02/02/2022 Bilateral Screening Mammogram, [facility]. 06/14/2023 Bilateral MG 3D screen mammo imp/cad., [facility]. 07/03/2024 Bilateral MG 3D screen mammo imp/cad., [facility]. Tissue Density: Left: The breasts are extremely dense, which lowers the sensitivity of mammography. Pathology Description: Location: 2 o'clock. Marker Left Behind. Needle Type: Mammotome Cores: 7 The procedure of ultrasound guided core biopsy was explained to the patient. Benefits, alternatives, and risks were discussed. An informed consent was then obtained. The patient was placed in supine positioning for imaging and for the procedure. The overlying skin was prepped and draped in usual sterile fashion. Lidocaine buffered with bicarbonate was used as anesthetic into the skin and subcutaneous tissue up to area of concern in the 2:00 left breast. Under ultrasound guidance, a 13-gauge vacuum-assisted mammotome Elite biopsy gun was used to obtain 7 core samples. Following this, a HydroMark butterfly clip was left in lesion. The patient tolerated the procedure well without any immediate complication. The patient was kept in the radiology department for short stay after the procedure and then discharged home in stable condition. Postprocedure mammogram: The patient was transferred to mammography for physician ordered post procedure mammogram for clip placement verification. Post procedure mammogram demonstrates appropriate placement of clip. IMPRESSION: Successful, uncomplicated ultrasound guided core biopsy of area of concern in the 2:00 left breast, full pathology results to follow. Possible fibroadenoma. [facility], , 10/19/2024 3:48 PM. Pathology Results: Result: Benign, Fibrocystic change. Pathology and radiology were reviewed. Findings are concordant. LEFT BREAST, 2:00, ULTRASOUND GUIDED NEEDLE CORE BIOPSY: Benign breast with fibrocystic changes including microcalcifications. Overall Assessment: Benign Assessment: MG diagnostic mammo LT wo CAD. - Left: Benign, BI-RAD 2. Management: Diagnostic Breast Ultrasound of the left breast in 6 months. Electronically signed and approved by: Praveen Marcelino M.D. Radiologist
== END ==
LOC: RADUSWWP 10:12
PROVIDERS: ATTEND Surgery
DX: N60.12 Diffuse cystic mastopathy of left breast (principal)
CPT/HCPCS: 88305; 77065; 19083; A4648

== ENCOUNTER → 2024-11-02 | Outpatient (CLI) | payer BC ==
[2024-11-02 13:45] VITALS: BP 116/78; PULSE 74; RESP 18; TEMP 97.7
--- NOTE | 2024-11-02 14:05 | P.PN ---
Subjective Progress Note Date: 11/02/24 Silvia is a 49 -year-old white female seen in consutation for Dr. Caceres who had a bilateral mammogram on 07-03-24 which was BIRAD 2. She had an ultrasound of the left breast on 10-03-24 which led to a left breast core biopsy. The pathology was benign concordant. She felt a lump in her breast in August and that led to the ultrasound. She can still fell the area. She has had bilateral breast lifts/reduction and bilateral implants. This was done in September 2022. The lump she is feeling now is in the lateral breast. It is tender. She does not have periods as she had a hysterectomy but her ovaries were not taken. No other lumps masses or nodules. Family history: 1. sister with a desmoid tumor removed from her left breast 2. father: skin cancer not melanoma Hormonal history: Menarche:12 , breast fed: yes, age at first : 24 Hysterectomy at 36, they did not take her previous control pills:7 years hormones: none Surgical history: 1. Hysterectomy 2. Cholecystectomy 3. Tonsillectomy 4. Bilateral breast reduction with implant placement 5. [facility] Medical history: none Social history: Smoke: Negative Alcohol: Social Drugs: Negative - Constitutional Constitutional: Reports sweats - EENT Eyes: denies blurred vision, denies pain Ears: deny: decreased hearing, tinnitus Ears, nose, mouth and throat: Denies headache, Denies sore throat - Breasts Breasts: bilateral: as per HPI - Cardiovascular Cardiovascular: Denies chest pain, Denies shortness of breath - Respiratory Comment: asthma - Gastrointestinal Comment: IBS - Genitourinary (Female) Genitourinary: Denies dysuria, Denies hematuria - Menstruation Menstruation: Reports post hysterectomy - Musculoskeletal Comment: scoliosis Musculoskeletal: Denies myalgias - Integumentary Integumentary: Denies pruritus, Denies rash - Neurological Neurological: Denies numbness, Denies weakness - Psychiatric Psychiatric: Denies anxiety, Denies depression - Endocrine Endocrine: Denies fatigue, Denies weight change - Hematologic/Lymphatic Comment: none - Allergic/Immunologic Allergic/Immunologic: Reports seasonal allergies Objective - Vital Signs Vital signs: Vital Signs Temp 97.7 F 11/02/24 13:43 Pulse 74 11/02/24 13:43 Resp 18 11/02/24 13:43 BP 116/78 11/02/24 13:43 Pulse Ox 100 11/02/24 13:43 FiO2 Intake & Output 11/01/24 11/02/24 11/02/24 18:59 06:59 18:59 Weight 65.771 kg - Constitutional General appearance: Present: cooperative - EENT Eyes: Present: EOMI ENT: Present: hearing grossly normal - Neck Neck: Present: normal ROM - Respiratory Respiratory: bilateral: CTA - Cardiovascular Rhythm: regular Heart sounds: normal: S1, S2 - Integumentary Integumentary: Present: normal turgor - Musculoskeletal Musculoskeletal: Present: gait normal - Psychiatric Psychiatric: Present: A&O x's 3, appropriate affect, intact judgment & insight - Additional findings Additional findings: Breast Exam: BRA: 34DD Inspection: Bilateral scars from breast reduction Palpation: Right breast: Multi positional exam postsurgical changes, no dominant masses or nodules of concern, implant in place Right axilla: No adenopathy of concern Left breast: Multi positional exam postsurgical changes, there is some slight increased nodularity at the 2 o'clock position consistent with the area which was most likely biopsied Left axilla: No adenopathy of concern Assessment and Plan Assessment: Impression: 1. Fibroadenoma left breast 2. Family history of skin cancer and father 3. sister history of desmoid tumor in her breast 4. Fibrocystic breast changes 5. Ultrasound abnormality left breast for which biopsy was performed; benign concordant 6. palpable change left breast appears to be consistent with that which was biopsied on ultrasound Plan: 1. Left breast ultrasound in 6 months with appointment at that time 2. Bilateral mammogram of 2024 3. Continue to follow with primary care doctor 4. If anything changes I would like to see the patient sooner Additional CC's: Zach Mary
== END ==
LOC: WWCWWP 13:35
PROVIDERS: ATTEND Surgery
DX: D24.2 Benign neoplasm of left breast (principal); N60.19 Diffuse cystic mastopathy of unspecified breast; N63.20 Unspecified lump in the left breast, unspecified quadrant; Z84.0 Family history of diseases of the skin and subcutaneous tissue; Z80.3 Family history of malignant neoplasm of breast; Z91.018 Allergy to other foods

== ENCOUNTER → 2025-04-26 | Outpatient (CLI) | payer BC ==
--- NOTE | 2025-04-26 15:30 | USB ---
Reason for Exam: Follow-up at short interval from prior study. Patient History: Menarche at age 12. First Full-Term at age 24. Hysterectomy at age 36. 10/19/2024, Benign US biopsy breast VAD LT on the left side. 09/14/2022, Bilateral Reduction. 06/18/2019, Benign Core Biopsy on the left side. 09/14/2022, Bilateral Implants. Risk Values: [place] 5 year model risk: 1.7%. NCI Lifetime model risk: 13.6%. Technique: Method: Targeted. Prior Study Comparison: 06/14/2023 Bilateral MG 3D screen mammo imp/cad., [facility]. 07/03/2024 Bilateral MG 3D screen mammo imp/cad., [facility]. 10/19/2024 Left MG diagnostic mammo LT wo CAD., [facility]. Findings: The upper outer quadrant of the left breast, the axilla of the left breast and the retroareolar of the left breast were scanned. A US of 2:00 position of the left breast axilla and retro-areolar region were reviewed. Stable nodule at the 2:00 position measuring 1.0 x 0.5 cm. Surgical clip appears to be within the nodule. Incidental note made of benign-appearing left axillary lymph node. Overall Assessment: Probably benign, BI-RAD 3 Management: Screening Mammogram of both breasts in 6 months. A clinical breast exam by your physician is recommended on an annual basis and results should be correlated with mammographic findings. This exam should not preclude additional follow-up of suspicious palpable abnormalities. Results were given to the patient verbally at the time of exam. [facility], , 04/26/2025 3:25 PM. Electronically signed and approved by: Murali Nieves M.D. Radiologis
== END | disposition home or self-care (01) ==
LOC: RADUSWWP 15:04
PROVIDERS: ATTEND Surgery
DX: N63.21 Unspecified lump in the left breast, upper outer quadrant (principal)

== ENCOUNTER → 2025-06-07 | Outpatient (CLI) | payer BC ==
[2025-06-07 10:27] VITALS: BP 119/76; PULSE 60; RESP 17; TEMP 98.2
--- NOTE | 2025-06-07 10:33 | P.PN ---
Subjective Progress Note Date: 06/07/25 06-07-25 Silvia is a 49 -year-old white female seen in consutation for Dr. Caceres on 11-02-24 who had a bilateral mammogram on 07-03-24 which was BIRAD 2. She had an ultrasound of the left breast on 10-03-24 which led to a left breast core biopsy. The pathology was benign concordant. She felt a lump in her breast in August and that led to the ultrasound. She could still fell the area. She has had bilateral breast lifts/reduction and bilateral implants. This was done in September 2022. The lump she was feeling was is in the lateral breast. It was tender. She does not have periods as she had a hysterectomy but her ovaries were not taken. At that time it was felt that a core biopsy of the area had been done and it was benign concordant. A repeat ultrasound of the left breast was performed on 04-26-2025 this was felt to be BI-RADS 3 and repeat bilateral mammogram in 6 months was recommended. A stable nodule at the 2 o'clock position measuring 1 x 0.5 cm was noted and a surgical clip appeared to be within the nodule. Benign axillary node. She states that she does have some cyclical nodularity at the area where she felt the lump initially. It has not increased in size and is not always palpable. She is not complaining of any nipple discharge or skin changes. No other lumps masses or nodules. She has had an FSH level and an estradiol level performed and was told that she is not perimenopausal at this time. She has had a hysterectomy and so is uncertain as to when her hormones would be cycling however she does feel cyclical changes in her breast. Family history: 1. sister with a desmoid tumor removed from her left breast 2. father: skin cancer not melanoma Hormonal history: Menarche:12 , breast fed: yes, age at first : 24 Hysterectomy at 36, they did not take her previous control pills:7 years hormones: none Surgical history: 1. Hysterectomy 2. Cholecystectomy 3. Tonsillectomy 4. Bilateral breast reduction with implant placement 5. [facility] Medical history: none Social history: Smoke: Negative Alcohol: Social Drugs: Negative - Constitutional Constitutional: Reports sweats - EENT Eyes: denies blurred vision, denies pain Ears: deny: decreased hearing, tinnitus Ears, nose, mouth and throat: Denies headache, Denies sore throat - Breasts Breasts: bilateral: as per HPI - Cardiovascular Cardiovascular: Denies chest pain, Denies shortness of breath - Respiratory Comment: asthma - Gastrointestinal Comment: IBS - Genitourinary (Female) Genitourinary: Denies dysuria, Denies hematuria - Menstruation Menstruation: Reports post hysterectomy - Musculoskeletal Comment: scoliosis Musculoskeletal: Denies myalgias - Integumentary Integumentary: Denies pruritus, Denies rash - Neurological Neurological: Denies numbness, Denies weakness - Psychiatric Psychiatric: Denies anxiety, Denies depression - Endocrine Endocrine: Denies fatigue, Denies weight change - Hematologic/Lymphatic Comment: none - Allergic/Immunologic Allergic/Immunologic: Reports seasonal allergies Objective - Constitutional General appearance: Present: cooperative - EENT Eyes: Present: EOMI ENT: Present: hearing grossly normal - Neck Neck: Present: normal ROM - Respiratory Respiratory: bilateral: CTA - Cardiovascular Rhythm: regular Heart sounds: normal: S1, S2 - Integumentary Integumentary: Present: normal turgor - Musculoskeletal Musculoskeletal: Present: gait normal - Psychiatric Psychiatric: Present: A&O x's 3, appropriate affect, intact judgment & insight - Additional findings Additional findings: Breast Exam: BRA: 34DD Inspection: Bilateral scars from breast reduction Palpation: Right breast: Multi positional exam postsurgical changes, no dominant masses or nodules of concern, implant in place Right axilla: No adenopathy of concern Left breast: Multi positional exam postsurgical changes, implant in place, no nodularity of concern particular attention to the 2:00 area does not reveal any lesions of concern, the ribs are palpable but no lesions in the breast Left axilla: No adenopathy of concern Assessment and Plan Assessment: Impression: 1. Fibroadenoma left breast 2. Family history of skin cancer father 3. sister history of desmoid tumor in her breast 4. Fibrocystic breast changes 5. Ultrasound abnormality left breast for which biopsy was performed; benign concordant 10-19-24 6. palpable change left breast appears to be consistent with that which was biopsied on ultrasound, repeat left breast ultrasound on 04-26-25 BIRAD 3 repeat bilateral mammogram in 6 months Plan: 1. bilateral mammogram in June 2025 with exam at that time 2. Continue to follow with primary care doctor 3. If anything changes I would like to see the patient sooner Additional CC's: Zach Mary
== END ==
LOC: WWCWWP 10:11
PROVIDERS: ATTEND Surgery
DX: D24.2 Benign neoplasm of left breast (principal); N60.19 Diffuse cystic mastopathy of unspecified breast; Z84.0 Family history of diseases of the skin and subcutaneous tissue; Z91.018 Allergy to other foods